=== PATIENT | male | born 1960 | race African-American/Black ===

== ENCOUNTER 2017-01-14 | Outpatient (CLI) | payer OTHER | END 2017-01-14 14:38 | disposition short-term general hospital (02) | CPT/HCPCS: A0425; A0429; A0888 ==

== ENCOUNTER 2019-05-07 23:51 | Outpatient (CLI) | payer OTHER | END 2019-05-07 23:52 | disposition EMS.NT | LOC: EMS 23:51 | PROVIDERS: ATTEND Surgery | DX: R55 Syncope and collapse (principal) ==

== ENCOUNTER 2019-05-29 15:56 | Outpatient (CLI) | payer OTHER ==
[2019-05-29] MEDS ORDERED: GADOBUTROL 10 MMOL/10 ML VIAL ONE (16:20)
== END 2019-05-29 15:57 | disposition home or self-care (01) ==
LOC: DI 15:56
PROVIDERS: ATTEND Nurse Practitioner Gerontology
DX: Z53.9 Procedure and treatment not carried out, unspecified reason (principal)